=== PATIENT | female | born 1975 | race American Indian/Alaskan Native ===

== ENCOUNTER 2018-09-10 08:55 | Emergency (ER) | payer SELFPAY ==
[2018-09-10] MEDS ORDERED: BOOSTRIX IM ONE (12:58)
--- NOTE | 2018-09-10 13:03 | Emergency Department Report ---
ED Rash HPI - HPI Chief Complaint: Animal Bite Stated Complaint: DOG BITE Time Seen by Provider: 09/10/18 12:58 Duration: 2 W Location: Other ([place]) Suspected Cause: Animal, Other (FRIENDS DOG 2 W AGO PUNCTURE L ARM - HAS A SCAB) Rash Symptoms: No Itching, No Facial Swelling, No Tongue/Oral Swelling, No Choking Sensation, No Peeling, No Blistering, No Fever, No Lightheaded, No Malaise, No Myalgias Severity: mild ED Review of Systems ROS: Stated complaint: DOG BITE Other details as noted in HPI Comment: All other systems reviewed and negative Constitutional: denies: chills Eyes: denies: eye pain ENT: denies: throat pain Respiratory: denies: orthopnea Cardiovascular: denies: dyspnea on exertion Endocrine: denies: excessive sweating Gastrointestinal: denies: nausea Musculoskeletal: denies: back pain Skin: lesions (OLD DOG BITE L ARM. NO FEVER) Neurological: denies: weakness Psychiatric: denies: depression Hematological/Lymphatic: denies: easy bleeding ED Past Medical Hx - Past Medical History Previous Medical History?: Yes Additional medical history: ANXIETY - Surgical History Past Surgical History?: No - Social History Smoking Status: Current Every Day Smoker Rash Exam - Exam General: Vital signs noted. No distress. Alert and acting appropriately. HEENT: No Periorbital Edema, No Conjuctival Injection, No Chemosis, No Perioral Edema, No Tongue Edema, No Uvular Edema, No Compromised Airway, No Drooling Lungs: Yes Good Air Exchange, No Wheezes, No Ronchi, No Stridor, No Cough, No Labored Respirations, No Retractions, No Use of Accessory Muscles, No Other Abnormal Lung Sounds Heart: Yes Regular, No Murmur Skin: Yes Other (HEALING DOG BITE L ARM. ABOUT 1 INCH FROM ELBOW. NO INFECTION- NO REDNESS. SCAB INTACT. FULL ROM. ), No Urticarial Rash, No Maculopapular Rash , No Morbilliform rash, No Bulla(e), No Excoriations, No Weeping, No Tenderness , No Erythema, No Edema, No Encrustations Other: Positive: Abdomen Normal, Neurologic Normal, Musculoskeletal Normal (HR 90 ON EXAM) ED Course Vital Signs 09/10/18 08:59 Temperature 98 F Pulse Rate 99 H Respiratory 16 Rate Blood Pressure 156/101 O2 Sat by Pulse 100 Oximetry ED Medical Decision Making - Medical Decision Making NO INFECTION NEEDS TDAP 2 W OLD FRIENDS DOG - Differential Diagnosis 2 W OLD DOG BITE Critical care attestation.: If time is entered above; I have spent that time in minutes in the direct care of this critically ill patient, excluding procedure time. ED Disposition Clinical Impression: Dog bite, Elevated blood pressure reading Disposition: TO HOME OR SELFCARE Is pt being admited?: No Does the pt Need Aspirin: No Condition: Stable Instructions: Animal Bite (ED) Additional Instructions: KEEP WOUND CLEAN FOLLOW UP PCP REFERRAL GIVEN BELOW MOTRIN OR TYLENOL FOR PAIN MONITOR YOUR BLOOD PRESSURE IF IT REMAINS HIGH SEE PCP Referrals: PRIMARY CAREMD [Primary Care Provider] - 3-5 Days LEONARD ZAYAS JR, MD [Staff Physician] - 3-5 Days Time of Disposition: 13:01
[2018-09-10 13:25] VITALS: BP 115/88
== END 2018-09-10 13:30 | disposition home or self-care (01) ==
LOC: ED 08:55
DX: S41.152A Open bite of left upper arm, initial encounter (principal); F41.9 Anxiety disorder, unspecified; R03.0 Elevated blood-pressure reading, without diagnosis of hypertension; W54.0XXA Bitten by dog, initial encounter; Y93.89 Activity, other specified; Y92.89 Other specified places as the place of occurrence of the external cause; Y99.8 Other external cause status
CPT/HCPCS: 90471; 90715; 99282

== ENCOUNTER 2021-08-01 20:01 | Emergency (ER) | payer MEDICAID ==
--- NOTE | 2021-08-01 21:16 | Emergency Department Report ---
ED General Adult HPI - General Chief complaint: Urogenital-Female Stated complaint: SWOLLEN LYMPH NODES IN GROIN Time Seen by Provider: 08/01/21 21:12 Source: patient Mode of arrival: Ambulatory Limitations: No Limitations - History of Present Illness Initial comments: Patient is a 46-year-old female presents emergency room complaints of chronic groin lymph nodes and pain since August 2020. She states that she went to another emergency department in October 2020 and was advised she had inguinal lymphadenopathies and was given a prescription for Keflex and given follow-up. She states that she never followed up. She states that her IUD has also been in for 12 years and she was supposed to have it removed at 10 years. She states that she has not followed up with [facility] [employer] for IUD removal or for her regular female examinations. She denies any fever, nausea, vomiting, diarrhea, urinary symptoms, vaginal discharge, vaginal bleeding, abdominal pain, back pain. No allergies to medications. She states that she has an upcoming appointment with [facility] A[employer] on 08/09/2021. - Related Data Allergies Allergy/AdvReac Type Severity Reaction Status Date / Time No Known Allergies Allergy Unverified 09/10/18 08:59 ED Review of Systems ROS: Stated complaint: SWOLLEN LYMPH NODES IN GROIN Other details as noted in HPI Comment: All other systems reviewed and negative ED Past Medical Hx - Past Medical History Additional medical history: ANXIETY - Social History Smoking Status: Current Every Day Smoker Substance Use Type: None ED Physical Exam - General Limitations: No Limitations General appearance: alert, in no apparent distress - Head Head exam: Present: atraumatic, normocephalic - Eye Eye exam: Present: normal appearance - ENT ENT exam: Present: mucous membranes moist - GI/Abdominal GI/Abdominal exam: Present: soft, other (no palpable or visualized LAD in the bilateral inguinal region, no ttp, FROM of the BLE, no edema present, crisis therapist: EDIS cuello). Absent: distended, tenderness, guarding, rebound, rigid - Neurological Exam Neurological exam: Present: alert, oriented X3 - Psychiatric Psychiatric exam: Present: normal affect, normal mood - Skin Skin exam: Present: warm, dry, intact ED Course Vital Signs 08/01/21 20:54 Temperature 98.7 F Pulse Rate 87 Respiratory 17 Rate Blood Pressure 118/77 O2 Sat by Pulse 98 Oximetry ED Medical Decision Making - Medical Decision Making Patient is a 46-year-old female presents emergency room complaints of chronic groin lymph nodes and pain since August 2020. She states that she went to another emergency department in October 2020 and was advised she had inguinal lymphadenopathies and was given a prescription for Keflex and given follow-up. She states that she never followed up. She states that her IUD has also been in for 12 years and she was supposed to have it removed at 10 years. She states that she has not followed up with [facility] [employer] for IUD removal or for her regular female examinations. She denies any fever, nausea, vomiting, diarrhea, urinary symptoms, vaginal discharge, vaginal bleeding, abdominal pain, back pain. No allergies to medications. She states that she has an upcoming appointment with [facility] on 08/09/2021. Vitals are normal. On exam:no palpable or visualized LAD in the bilateral inguinal region, no ttp, FROM of the BLE, no edema present, crisis therapist: EDIS cuello, no abdominal tenderness on exam, no guarding, no rebound, no rigidity. Patient symptoms have been ongoing for 1 year and she was already seen in the emergency department in October 2020. She never followed up. She has an upcoming appointment with an [facility]POR[facility] A[employer]. Patient has no clinical signs/symptoms of emergent condition at this time. advised pt Please follow-up with your primary care doctor. Please keep your appointment with your [facility]POR[facility] A[employer] for further evaluation and to have your routine female examination, Pap smear, removal of your IUD. Return to emergency room for any new or worsening symptoms. Critical care attestation.: If time is entered above; I have spent that time in minutes in the direct care of this critically ill patient, excluding procedure time. ED Disposition Clinical Impression: Groin pain Qualifiers: Laterality: unspecified laterality Qualified Code(s): R10.30 - Lower abdominal pain, unspecified Disposition: HOME / SELF CARE / HOMELESS Is pt being admited?: No Does the pt Need Aspirin: No Condition: Stable Additional Instructions: Please follow-up with your primary care doctor. Please keep your appointment with your [facility]PORATE A[employer] for further evaluation and to have your routine female exam ination, Pap smear, removal of your IUD. Return to emergency room for any new or worsening symptoms. Referrals: MELIZA HUANG MD [Staff Physician] - 3-5 Days [facility] [Provider Group] - 3-5 Days EFREM AGUILAR MD [Staff Physician] - 3-5 Days your, behavioral health therapist [Other] - 3-5 Days Time of Disposition: 21:15 Print Language: BRUNEIAN
[2021-08-01 22:23] VITALS: BP 120/78
== END 2021-08-01 22:15 | disposition home or self-care (01) ==
LOC: ED 20:01
DX: R10.30 Lower abdominal pain, unspecified (principal); F41.8 Other specified anxiety disorders; F17.200 Nicotine dependence, unspecified, uncomplicated
CPT/HCPCS: 99282

== ENCOUNTER 2021-08-17 09:07 | Day surgery (SDC) | payer MEDICAID ==
[~2021-08-17 09:07] MED LIST: LACTATED RINGERS 1,000 ML IV SCH; MIDAZOLAM 2 MG/2 ML INJ IV NR
--- NOTE | 2021-08-17 09:59 | Anesthesia Day of Surgery ---
Anesthesia Day of Surgery - Day of Surgery Patient Examined: Yes Patient H&P Reviewed: Yes Patient is NPO: Yes
--- NOTE | 2021-08-17 09:59 | Anesthesia Consultation ---
Anesthesia Consult and Med Hx Date of service: 08/17/21 - Airway Anesthetic Teeth Evaluation: Poor ROM Head & Neck: Adequate Mental/Hyoid Distance: Adequate Mallampati Class: Class I Intubation Access Assessment: Probably Good - Pre-Operative Health Status ASA Pre-Surgery Classification: ASA2 Proposed Anesthetic Plan: General - Pulmonary Hx Smoking: Yes (1PPD) Hx Respiratory Symptoms: No (neg COVID PCR 08/10/21) - Cardiovascular System Hx Hypertension: No - Central Nervous System CVA: No - Endocrine Hx Renal Disease: No Hx Liver Disease: No Hx Insulin Dependent Diabetes: No Hx Non-Insulin Dependent Diabetes: No Hx Thyroid Disease: No - Other Systems Hx Obesity: No - Additional Comments Anesthesia Medical History Comments: No hx anesthetic complications.
[2021-08-17] MEDS ORDERED: KETOROLAC 30 MG/1 ML INJ IV PRN (10:00)
[2021-08-17] MEDS ORDERED: HYDROcodone/ACETAMINOPHEN 5-325 MG TAB PO PRN (10:30)
[2021-08-17] MEDS ORDERED: ONDANSETRON 4 MG/2 ML INJ IV PRN (10:30)
[2021-08-17] MEDS ORDERED: LIDOCAINE MPF (2%) 20 MG/1 ML VIAL 5 ML ONE (11:11)
[2021-08-17] MEDS ORDERED: ONDANSETRON 4 MG/2 ML INJ ONE (11:11)
[2021-08-17] MEDS ORDERED: propofoL 200 MG/20 ML VIAL IV ONE (11:12)
[2021-08-17] MEDS ORDERED: fentaNYL 100 MCG/2 ML INJ ONE (11:12)
--- NOTE | 2021-08-17 11:12 | History and Physical Report ---
History of Present Illness Date of examination: 08/17/21 Date of admission: 06/16/21 Chief complaint: lost iud. History of present illness: 46 yo . with iud with missing strings. pt id here for removal of iud. Past History Past Medical History: no pertinent history Past Surgical History: no surgical history Family/Genetic History: none Social history: no significant social history, single Medications and Allergies Allergies Allergy/AdvReac Type Severity Reaction Status Date / Time No Known Allergies Allergy Unverified 08/12/21 15:26 Home Medications Medication Instructions Recorded Confirmed Last Taken Type No Known Home Medications [No 08/12/21 08/12/21 Unknown History Reported Home Medications] Active Meds: Active Medications Hydrocodone Bitart/Acetaminophen (Hydrocodone/Acetaminophen 5-325 Mg Tab) 1 each PO ONCE PRN PRN Reason: Pain, Moderate (4-6) Stop: 08/17/21 18:00 Lactated Ringer's (Lactated Ringers) 1,000 mls @ 100 mls/hr IV DIRECT LATANYA Stop: 08/17/21 23:59 Last Admin: 08/17/21 09:55 Dose: 100 mls/hr Documented by: Ketorolac Tromethamine (Ketorolac 30 Mg/1 Ml Inj) 30 mg IV ONCE PRN PRN Reason: Pain, Moderate (4-6) Stop: 08/17/21 18:00 Midazolam HCl (Midazolam 2 Mg/2 Ml Inj) 2 mg IV PREOP NR Stop: 08/17/21 23:59 Ondansetron HCl (Ondansetron 4 Mg/2 Ml Inj) 4 mg IV ONCE PRN PRN Reason: Nausea And Vomiting Review of Systems All systems: negative - Vital Signs Vital signs: Vital Signs Temp Pulse Resp BP Pulse Ox 97.9 F 76 16 110/79 99 08/17/21 09:35 08/17/21 09:35 08/17/21 09:35 08/17/21 09:35 08/17/21 09:35 Temp Pulse Resp BP Pulse Ox 97.9 F 76 16 110/79 99 08/17/21 10:05 08/17/21 10:05 08/17/21 10:05 08/17/21 10:05 08/17/21 10:05 - Physical Exam Breasts: Positive: normal Cardiovascular: Regular rate, Normal S1, Normal S2 Lungs: Positive: Clear to auscultation, Normal air movement Abdomen: Positive: normal appearance, soft, normal bowel sounds. Negative: distention, tenderness Genitourinary (Female): Positive: normal external genitalia, normal perenium Vulva: both: normal Vagina: Positive: normal moisture. Negative: discharge Cervix: Positive: other (no iud strings seen.). Negative: lesion, discharge Uterus: Positive: normal size, normal contour Adnexa: both: normal Anus/Rectum: Positive: normal perianal skin, heme negative. Negative: rectal mass, hemorrhoids Extremities: Deep Tendon Reflex Grade: Normal +2 Results All other labs normal. Assessment and Plan misplaced iud. plan removal with hysteroscope.
[2021-08-17] MEDS ORDERED: SODIUM CHLORIDE 0.9% IRRIG SOLN 2000 ML IR ONE (11:48)
[2021-08-17] MEDS ORDERED: SODIUM CHLORIDE 0.9% IRR 1,000 ML BOTTLE IR ONE (11:49)
[2021-08-17] MEDS ORDERED: dexAMETHasone 20 MG/5 ML VIAL ONE (11:50)
[2021-08-17] MEDS ORDERED: KETOROLAC 30 MG/1 ML INJ ONE (12:16)
--- NOTE | 2021-08-17 12:33 | Procedure Note ---
Date of procedure: 08/17/21 Pre-op diagnosis: missed iud Post-op diagnosis: other (imbedded iud(paragard)) Procedure: Dr. Woods dictating operative report on the patient. Time of surgery was 25 minutes. Preoperative diagnosis loss IUD. Postoperative diagnosis embedded IUD, ParaGard. Operation was operative hysteroscopy and dilatation and curettage to remove the embedded IUD. Anesthesia General with intubation with LMA. Estimated blood loss 10 cc. Complications none. Findings the patient was found to have an embedded IUD that was embedded in the endometrial slightly. However I was not able to use a grasper through the hysteroscope to remove the embedded IUD. Nevertheless I was able to use a curette to curette the IUD out blindly. Procedure patient was taken operatory given a general anesthetic with LMA placed in dorsolithotomy incision and prepped and draped in usual fashion. Subsequently we emptied her bladder with in and out catheterization she had minimal urine. The speculum was placed inside the vagina cervix grasped with a single-tooth tenaculum and dilated up enough to accommodate a operative hysteroscope. And initially with the operative hysteroscope we could see the both tubal ostium and can clearly see the lining of the endometrium and the first we did not see the IUD but when I backed the scope out slightly we can see the embedded IUD only left-hand side of the lower uterine segment. We tried to use a grasper to grasp the IUD however it Popping off. Subsequently we used a curette to remove the IUD that was embedded it was sent for pathological inspection. See no further procedures indicated the surgery was terminated the patient monie erated procedure well she was then returned to recovery room in stable condition end of operative note on this patient. Anesthesia: GETA Surgeon: ARMOND WOODS Estimated blood loss: minimal Pathology: list (iud paragard) Condition: stable Disposition: PACU
--- NOTE | 2021-08-17 14:23 | Post Anesthesia Evaluation ---
- Post Anesthesia Evaluation Patient Participated: Yes Airway Patent: Yes Stable Respiratory Function: Yes Nausea/Vomiting: No Temp > 96.8F: Yes Pain Manageable: Yes Adequeate Hydration: Yes Anesthesia Complications: No
[2021-08-17 16:43] VITALS: BP 122/78
== END 2021-08-17 09:08 | disposition home or self-care (01) ==
LOC: OR 09:07
DX: Z30.432 Encounter for removal of intrauterine contraceptive device (principal); F17.210 Nicotine dependence, cigarettes, uncomplicated; Z72.89 Other problems related to lifestyle; Z79.899 Other long term (current) drug therapy; Z98.890 Other specified postprocedural states
CPT/HCPCS: 58562; 81025; 88300; A4217; J1100; J1885; J2405; J2704; J3010; J7120; 88302